=== PATIENT | female | born 1945 | race Caucasian/White ===

== ENCOUNTER → 2017-07-21 | Outpatient (CLI) | payer MEDICARE | END | disposition home or self-care (01) | LOC: PCVCCLINIC 15:08 | PROVIDERS: ATTEND Internal Medicine Cardiovascular Disease | DX: I25.10 Atherosclerotic heart disease of native coronary artery without angina pectoris (principal); I10 Essential (primary) hypertension; E78.00 Pure hypercholesterolemia, unspecified; R07.89 Other chest pain; I82.90 Acute embolism and thrombosis of unspecified vein; R94.31 Abnormal electrocardiogram [ECG] [EKG]; M19.90 Unspecified osteoarthritis, unspecified site; Z79.82 Long term (current) use of aspirin; Z79.899 Other long term (current) drug therapy | CPT/HCPCS: 80061; 93005; G0463 ==

== ENCOUNTER → 2018-09-30 | Outpatient (CLI) | payer MEDICARE | END | disposition home or self-care (01) | LOC: PCVCCLINIC 13:53 | PROVIDERS: ATTEND Internal Medicine Cardiovascular Disease | DX: I25.10 Atherosclerotic heart disease of native coronary artery without angina pectoris (principal); I10 Essential (primary) hypertension; E78.00 Pure hypercholesterolemia, unspecified; I82.90 Acute embolism and thrombosis of unspecified vein; Z79.82 Long term (current) use of aspirin; Z79.899 Other long term (current) drug therapy | CPT/HCPCS: 93005; G0463 ==

== ENCOUNTER 2020-08-20 12:01 | Emergency (ER) | payer MEDICARE ==
[~2020-08-20] VITALS: Ht 172.7 cm; Wt 107.7 kg
--- NOTE | 2020-08-20 13:10 | RAD ---
EXAM: CT HEAD WITHOUT IV CONTRAST CLINICAL HISTORY: FELL TODAY, HIT BACK OF HEAD, NECK STIFFENES COMPARISON: None. TECHNIQUE: Routine CT of the head without contrast. Soft tissues and bone windows were reviewed. PQRS compliance statement - One or more of the following individualized dose reduction techniques were utilized for this study: 1. Automated exposure control 2. Adjustment of the mA and/or kV according to patient size 3. Use of iterative reconstruction technique FINDINGS: There is no evidence of hemorrhage, mass or extra-axial fluid collection. Mg-white differentiation is maintained with no evidence of edema. There is no mass effect or shift of the intracranial structures. The ventricles, basilar cisterns and cortical sulci are normal in size and configuration for the patients stated age. The cerebellum and brainstem are unremarkable. The calvarium demonstrates no evidence of fracture or focal lesion. There is normal aeration of the visualized paranasal sinuses and mastoid air cells. The visualized portions of the orbits are normal. Subcutaneous soft tissue infiltration overlying the left parieto-occipital region likely subgaleal hematoma. IMPRESSION: No evidence for acute intracranial process. EXAM: CT CERVICAL SPINE WITHOUT IV CONTRAST CLINICAL HISTORY: Reason: FELL TODAY, HIT BACK OF HEAD, NECK STIFFENES / Spl. Instructions: / History: COMPARISON: None available. TECHNIQUE: Helical CT of the cervical spine was performed. Axial, coronal and sagittal reformatted images were also performed. PQRS compliance statement - One or more of the following individualized dose reduction techniques were utilized for this study: 1. Automated exposure control 2. Adjustment of the mA and/or kV according to patient size 3. Use of iterative reconstruction technique FINDINGS: Vertebral body heights are preserved. Moderate C4-5, C5-6 and C6-7 disc height loss. Endplate osteophytes are seen. Posterior disc osteophyte complex C4-5 results in moderate to severe central canal stenosis. No acute fracture. IMPRESSION: 1. No acute fracture or subluxation. 2. Multilevel degenerative changes of the spine are seen. Electronically signed by: Mahad Dumont MD (08/20/2020 1:07 PM) [id number]
--- NOTE | 2020-08-20 13:26 | RAD ---
EXAM: 3 Views Left Shoulder DATE: 08/20/2020 12:49 PM INDICATION: Reason: LT SHOULDER PAIN AFTER FALL / Spl. Instructions: / History: COMPARISON: No Prior FINDINGS: There is no evidence for acute fracture or dislocation. AC joint is congruent. Severe left glenohumeral joint osteoarthritis. Humeral head is not high riding. IMPRESSION: 1. No acute fracture or dislocation. 2. Severe left glenohumeral joint osteoarthritis. Electronically signed by: Mahad Dumont MD (08/20/2020 1:23 PM) [id number]
[2020-08-20] MEDS ORDERED: ACET325C6 PO (14:12)
--- NOTE | 2020-08-20 14:13 | PHYS DOC ---
Past Medical History Past Medical History: Hypertension, Pneumonia Past Surgical History: Knee Replacement Additional Past Surgical Histo: RT SHOULDER, DETACHED RETINA, CATARACTS Smoking Status: Never Smoker Alcohol Use: None General Adult EDM: Chief Complaint: MECHANICAL FALL HPI: HPI: Patient is a 74-year-old female who presents with chief complaint of head and right shoulder pain status post mechanical fall prior to arrival. States she was walking in the garage. States the garage became wet due to rain fall when she slipped. She states she fell backwards landing on her butt in the back of her head. She denies loss of consciousness. She did have to have help standing up. She does not take blood thinners. She does note some mild posterior right shoulder pain. Denies any midline neck pain. Denies any low back pain. Denies vomiting. Denies acute vision or hearing changes. Notes a swelling to the posterior occiput. No other complaints. Review of Systems: Review of Systems: Constitutional: Denies fever or chills. [] Eyes: Denies change in visual acuity. [] HENT: Denies nasal congestion or sore throat. [] Respiratory: Denies cough or shortness of breath. [] Cardiovascular: Denies chest pain or edema. [] GI: Denies abdominal pain, nausea, vomiting, bloody stools or diarrhea. [] : Denies dysuria. [] Musculoskeletal: Positive for fall Integument: Denies rash. [] Neurologic: Denies headache, focal weakness or sensory changes. [] Endocrine: Denies polyuria or polydipsia. [] Lymphatic: Denies swollen glands. [] Psychiatric: Denies depression or anxiety. [] Heart Score: Risk Factors: Risk Factors: DM, Current or recent (<one month) smoker, HTN, HLP, family history of CAD, obesity. Risk Scores: Score 0 - 3: 2.5% MACE over next 6 weeks - Discharge Home Score 4 - 6: 20.3% MACE over next 6 weeks - Admit for Clinical Observation Score 7 - 10: 72.7% MACE over next 6 weeks - Early Invasive Strategies Allergies: Allergies: Allergies Coded Allergies Type Severity Reaction Last Updated Verified No Known Drug Allergies 08/20/20 No Physical Exam: PE: Physical Exam Trauma: Primary Survey: Airway: Intact. Speaks in normal voice and phonation. Breathing: Breath sounds are clear and equal bilaterally. Circulation: Regular rhythm, 2+ and symmetric radial, DP and PT pulses. Disability: GCS on arrival was 15. Pupils 3 mm, ERRL Exposure: Complete exposure obtained and described in detail below. Secondary Survey: General: Awake, alert, appropriate, and in no acute distress HENT: Palpable cephalhematoma to the posterior occiput TMs clear bilaterally, no hemotympanum. No periorbital tenderness or deformity. No obvious craniofacial trauma. Midface is stable. No apparent dental or tongue/oropharyngeal injury. No septal hematoma. Neck: C-spine: no midline tenderness. Without step-off, deformity, abrasion, ecchymosis, or other signs of trauma. Paraspinal musculature with no tenderness and/or hypertonicity. Eyes: Pupils 3 mm ERRL, EOMI grossly, no evidence of ocular trauma, conjunctivae normal Respiratory: CTAB without wheezing, rhonchi, or rales. No distress. Chest wall with no tenderness to palpation. No crepitus, ecchymosis, or flail segment present. Cardiovascular: Regular rhythm without murmurs noted. 2+ and symmetric radial, DP and PT pulses. GI: Soft, non-tender, non-distended Musculoskeletal: T-spine: no midline tenderness. Without step-off, deformity, abrasion, ecchymosis, or other signs of trauma. Paraspinal musculature with no tenderness and/or hypertonicity. L-spine: no midline tenderness. Without step-off, deformity, abrasion, ecchymosis, or other signs of trauma. Paraspinal musculature with no tenderness and/or hypertonicity. RUE: Active ROM, no obvious deformity, no gross weakness or sensory deficits, warm & well-perfused LUE: Active ROM, no obvious deformity, no gross weakness or sensory deficits, warm & well-perfused RLE: Active ROM, no obvious deformity, no gross weakness or sensory deficits, warm & well-perfused LLE: Active ROM, no obvious deformity, no gross weakness or sensory deficits, warm & well-perfused Integument: Without abrasions, contusions, or lacerations. Neurologic: GCS on arrival as noted above. No obvious focal motor or sensory deficits on examination. Gait not assessed due to acuity of trauma assessment. Current Patient Data: Vital Signs: Vital Signs Date Time Temp Pulse Resp B/P (MAP) Pulse Ox O2 Delivery O2 Flow Rate FiO2 08/20/20 12:01 97.1 70 16 139/60 (86) 98 Room Air 97.1 EKG: EKG: [] Radiology/Procedures: Radiology/Procedures: [place] [id number] IMAGING REPORT Signed PATIENT: DEVIKA THEODORECOUNT: [id number] : 1945 LOCATION: ER AGE: 74 SEX: F EXAM STATUS: REG ER ORD. PHYSICIAN: ARIEL AMAYA DO REASON: LT SHOULDER PAIN AFTER FALL PROCEDURE: SHOULDER 2+V LEFT EXAM: 3 Views Left Shoulder DATE: 08/20/2020 12:49 PM INDICATION: Reason: LT SHOULDER PAIN AFTER FALL / Spl. Instructions: / History: COMPARISON: No Prior FINDINGS: There is no evidence for acute fracture or dislocation. AC joint is congruent. Severe left glenohumeral joint osteoarthritis. Humeral head is not high riding. IMPRESSION: 1. No acute fracture or dislocation. 2. Severe left glenohumeral joint osteoarthritis. Electronically signed by: Mahad Dow MD (08/20/2020 1:23 PM) [id number] DICTATED and SIGNED BY: MAHAD DOW MD DATE: 08/20/[address] [id number] IMAGING REPORT Signed PATIENT: DEVIKA THEODORE JACCOUNT: [id number] : 1945 LOCATION: ER AGE: 74 SEX: F EXAM STATUS: REG ER ORD. PHYSICIAN: BRIGITTE GONZÁLES APRN REASON: FELL TODAY, HIT BACK OF HEAD, NECK STIFFENES PROCEDURE: CT HEAD AND CERVICAL SPINE WO EXAM: CT HEAD WITHOUT IV CONTRAST CLINICAL HISTORY: FELL TODAY, HIT BACK OF HEAD, NECK STIFFENES COMPARISON: None. TECHNIQUE: Routine CT of the head without contrast. Soft tissues and bone windows were reviewed. PQRS compliance statement - One or more of the following individualized dose reduction techniques were utilized for this study: 1. Automated exposure control 2. Adjustment of the mA and/or kV according to patient size 3. Use of iterative reconstruction technique FINDINGS: There is no evidence of hemorrhage, mass or extra-axial fluid collection. Mg-white differentiation is maintained with no evidence of edema. There is no mass effect or shift of the intracranial structures. The ventricles, basilar cisterns and cortical sulci are normal in size and configuration for the patients stated age. The cerebellum and brainstem are unremarkable. The calvarium demonstrates no evidence of fracture or focal lesion. There is normal aeration of the visualized paranasal sinuses and mastoid air cells. The visualized portions of the orbits are normal. Subcutaneous soft tissue infiltration overlying the left parieto-occipital region likely subgaleal hematoma. IMPRESSION: No evidence for acute intracranial process. EXAM: CT CERVICAL SPINE WITHOUT IV CONTRAST CLINICAL HISTORY: Reason: FELL TODAY, HIT BACK OF HEAD, NECK STIFFENES / Spl. Instructions: / History: COMPARISON: None available. TECHNIQUE: Helical CT of the cervical spine was performed. Axial, coronal and sagittal reformatted images were also performed. PQRS compliance statement - One or more of the following individualized dose reduction techniques were utilized for this study: 1. Automated exposure control 2. Adjustment of the mA and/or kV according to patient size 3. Use of iterative reconstruction technique FINDINGS: Vertebral body heights are preserved. Moderate C4-5, C5-6 and C6-7 disc height loss. Endplate osteophytes are seen. Posterior disc osteophyte complex C4-5 results in moderate to severe central canal stenosis. No acute fracture. IMPRESSION: 1. No acute fracture or subluxation. 2. Multilevel degenerative changes of the spine are seen. Electronically signed by: Mahad Dow MD (08/20/2020 1:07 PM) [id number] DICTATED and SIGNED BY: MAHAD DOW MD DATE: 08/20/20 1303 [] Course & Med Decision Making: Course & Med Decision Making Pertinent Labs and Imaging studies reviewed. (See chart for details) [] Patient is a pleasant 74-year-old female who presents with chief complaint of head and right shoulder pain status post mechanical fall. Nausea vital signs unremarkable. Exam noted above. CT imaging reveals no acute abnormality. Right shoulder plain films also reveal no acute fracture. Given the patient does not take any blood thinners I do not feel inpatient observation is indicated. Patient's [id number] is at bedside and can transport the patient home. Patient does feel comfortable going home. States her pain has improved significantly while in the emergency department. She has been able to ambulate. C-collar removed. She has no numbness or weakness to the upper extremities. Denies any midline neck pain appears clinically sober. Return precautions were discussed and understood. She was instructed to follow-up with her primary care physician in the next 2 to 3 weeks. Stable for discharge home. Dragon Disclaimer: Dragon Disclaimer: This electronic medical record was generated, in whole or in part, using a voice recognition dictation system. Departure Departure Impression: Primary Impression: Fall Qualified Codes: W19.XXXA - Unspecified fall, initial encounter Additional Impression: Head injury Qualified Codes: S09.90XA - Unspecified injury of head, initial encounter Disposition: HOME, SELF-CARE Condition: STABLE Referrals: RAKAN LUJAN (PCP) Patient Instructions: Fall Prevention and Home Safety Additional Instructions: Please follow-up your primary care physician in the next 2 to 3 days. Scripts Acetaminophen (Tylenol) 325 Mg Capsule 1000 MG PO TID PRN PRN for PAIN for 7 Days, #21 CAP Prov: ARIEL AMAYA DO 08/20/20 Justicifation of Admission Dx: Justifications for Admission: Justification of Admission Dx: N/A ARIEL AMAYA DO Aug 20, 2020 14:12
[2020-08-20 14:15] VITALS: BP 137/70
== END 2020-08-20 14:47 | disposition home or self-care (01) ==
LOC: ER 12:01
DX: S09.8XXA Other specified injuries of head, initial encounter (principal); M25.512 Pain in left shoulder; I10 Essential (primary) hypertension; Z98.890 Other specified postprocedural states; W01.0XXA Fall on same level from slipping, tripping and stumbling without subsequent striking against object, initial encounter; Y93.89 Activity, other specified; Y92.89 Other specified places as the place of occurrence of the external cause; Y99.8 Other external cause status
CPT/HCPCS: 70450; 72125; 73030; 99285